=== PATIENT | male | born 1945 | race Caucasian/White ===

== ENCOUNTER 2018-05-14 14:48 | Emergency (ER) | payer OTHER, BC ==
[~2018-05-14 14:48] MED LIST: ALLOPURINOL300 MG PO; COLCRYS0.6 MG PO; CYMBALTA30 MG PO; CYMBALTA60 MG PO; LISINOPRIL20 MG PO
[2018-05-14 15:04] LABS: BASOPHIL (%) 0.3 % (0-1); BASOPHIL COUNT 0.1 K/uL (0-0.1); EOSINOPHIL (%) 1.3 % (0-5); EOSINOPHIL COUNT 0.2 K/uL (0-0.3); HEMATOCRIT 42.1 % (38.0-50.0); HEMOGLOBIN 14.5 G/DL (12.5-16.6); LYMPHOCYTE (%) 19.1 % (15-42); LYMPHOCYTE COUNT 3.4 K/uL (1.0-2.8); MCH 33.4 PG (29.0-34.0); MCHC 34.4 G/DL (30.0-36.0); MONOCYTE (%) 4.3 % (3-12); MONOCYTE COUNT 0.8 K/uL (0-0.8); PLATELET COUNT 209 K/uL (156-360); RBC DIS.WIDTH-CV 12.6 % (11.8-14.6); RBC DIS.WIDTH-SD 44.9 % (39-53); RED BLOOD COUNT 4.34 M/uL (4.00-5.50); WHITE BLOOD COUNT 17.8 K/uL (4.1-10.2)
[2018-05-14 15:13] LABS: AMYLASE 76 IU/L (1-118); CHLORIDE 102 mEq/L (99-109); POTASSIUM 4.4 mEq/L (3.7-5.4); SODIUM 138 mEq/L (136-147)
[2018-05-14 15:15] LABS: GLUCOSE 222 mg/dL (70-99)
[2018-05-14 15:18] LABS: SERUM ETHYL ALCOHOL < 10 mg/dL
[2018-05-14 15:19] LABS: CREATININE 1.5 mg/dL (0.6-1.3); GFR ESTIMATE (CALCULATED) 49 mL/min/ (58.99-99999)
[2018-05-14 15:20] LABS: UREA NITROGEN (BUN) 20 mg/dL (9-23)
[2018-05-14 15:22] LABS: LIPASE 56 U/L (1.0-51.0)
== END 2018-05-14 19:18 | disposition short-term general hospital (02) ==
LOC: TRA 14:48
PROVIDERS: Emergency Medicine
PROC: 0BH17EZ Insertion of Endotracheal Airway into Trachea, Via Natural or Artificial Opening (ICD-10-PCS; principal; 2018-05-14)
PROC: 30233N1 Transfusion of Nonautologous Red Blood Cells into Peripheral Vein, Percutaneous Approach (ICD-10-PCS; principal; 2018-05-14)
PROC: 0W9B30Z Drainage of Left Pleural Cavity with Drainage Device, Percutaneous Approach (ICD-10-PCS; principal; 2018-05-14)
PROC: 5A0935Z Assistance with Respiratory Ventilation, Less than 24 Consecutive Hours (ICD-10-PCS; principal; 2018-05-14)
PROC: 30233K1 Transfusion of Nonautologous Frozen Plasma into Peripheral Vein, Percutaneous Approach (ICD-10-PCS; principal; 2018-05-14)
PROC: 06HM33Z Insertion of Infusion Device into Right Femoral Vein, Percutaneous Approach (ICD-10-PCS; principal; 2018-05-14)
PROC: 30233R1 Transfusion of Nonautologous Platelets into Peripheral Vein, Percutaneous Approach (ICD-10-PCS; principal; 2018-05-14)
PROC: 0W9930Z Drainage of Right Pleural Cavity with Drainage Device, Percutaneous Approach (ICD-10-PCS; principal; 2018-05-14)
DX: S22.5XXA Flail chest, initial encounter for closed fracture (principal); S27.329A Contusion of lung, unspecified, initial encounter; S27.0XXA Traumatic pneumothorax, initial encounter; I95.9 Hypotension, unspecified; T79.4XXA Traumatic shock, initial encounter; S22.43XA Multiple fractures of ribs, bilateral, initial encounter for closed fracture; S42.001A Fracture of unspecified part of right clavicle, initial encounter for closed fracture; S82.002A Unspecified fracture of left patella, initial encounter for closed fracture; V23.4XXA Motorcycle driver injured in collision with car, pick-up truck or van in traffic accident, initial encounter; Y92.410 Unspecified street and highway as the place of occurrence of the external cause; I48.92 Unspecified atrial flutter; I45.10 Unspecified right bundle-branch block; I10 Essential (primary) hypertension; F17.220 Nicotine dependence, chewing tobacco, uncomplicated; Z90.49 Acquired absence of other specified parts of digestive tract
CPT/HCPCS: 70450; 71045; 71260; 72125; 72129; 72132; 73030; 73552; 74177; 80048; 81003; 82150; 83690; 85025; 86850; 86900; 86901; 86920; 93005; 94002; 94799; 99281; 99285; C1751; G0480; J2250; J3010; P9016; P9017; P9035; P9037